=== PATIENT | male | born 1990 | race Hispanic/Latino ===

== ENCOUNTER 2021-04-10 08:24 | Emergency (ER) | payer SELFPAY ==
[2021-04-10 08:31] VITALS: BP 139/86
--- NOTE | 2021-04-10 08:44 | Emergency Department Report ---
ED General Adult HPI - General Chief complaint: Urogenital-Male Stated complaint: DISCOMFORT IN GROIN SWELLING Time Seen by Provider: 04/10/21 08:31 Source: patient Mode of arrival: Ambulatory Limitations: No Limitations - History of Present Illness Initial comments: 30-year-old male patient presents with complaints of right groin pain that occurred 4 days ago and possible swelling of his testicles that he noticed last night. He denies any current pain or trauma to his abdomen or testicles. Patient reports that he helped his cousin move heavy furniture on Wednesday and Wednesday. He denies any nausea/vomiting, fever/chills/sweats, dysuria/hematuria/urinary frequency, penile discharge, testicular pain, skin lesions/changes in color, or diarrhea/constipation/hematochezia/melena. Patient states when the pain occurred it was mild and only lasted a few hours. Pain seemed to improved after stretching per patient. He reports a history of anxiety and denies any other past medical problems. - Related Data Allergies Allergy/AdvReac Type Severity Reaction Status Date / Time No Known Allergies Allergy Unverified 04/10/21 08:26 ED Review of Systems ROS: Stated complaint: DISCOMFORT IN GROIN SWELLING Other details as noted in HPI Constitutional: denies: chills, diaphoresis, fever, malaise Gastrointestinal: as per HPI. denies: nausea, vomiting, diarrhea, constipation, hematemesis, melena, hematochezia Genitourinary: denies: urgency, dysuria, frequency, hematuria, discharge, testicular pain, testicular mass Musculoskeletal: denies: back pain Skin: denies: rash, lesions, change in color Hematological/Lymphatic: denies: swollen glands ED Past Medical Hx - Past Medical History Previous Medical History?: No - Surgical History Past Surgical History?: No - Social History Smoking Status: Never Smoker Substance Use Type: Alcohol ED Physical Exam - General Limitations: No Limitations General appearance: alert, in no apparent distress - Head Head exam: Present: atraumatic, normocephalic - Eye Eye exam: Present: normal appearance. Absent: scleral icterus - Respiratory Respiratory exam: Absent: respiratory distress - Cardiovascular Cardiovascular Exam: Present: regular rate - GI/Abdominal GI/Abdominal exam: Present: soft, normal bowel sounds. Absent: distended, tenderness, guarding, rebound, rigid - Rectal Rectal exam: Present: deferred - exam: Present: normal inspection. Absent: testicular tenderness, scrotal swelling External exam: Present: normal external exam. Absent: erythema, swelling - Neurological Exam Neurological exam: Present: alert, oriented X3, normal gait - Psychiatric Psychiatric exam: Present: normal affect, normal mood - Skin Skin exam: Present: warm, dry, intact, normal color. Absent: rash ED Course Vital Signs 04/10/21 08:27 Temperature 98.9 F Pulse Rate 69 Respiratory 18 Rate Blood Pressure 139/86 O2 Sat by Pulse 100 Oximetry ED Medical Decision Making - Medical Decision Making 30-year-old male patient presents with complaints of right groin pain that occurred 4 days ago and possible swelling of his testicles that he noticed last night. He denies any current pain or trauma to his abdomen or testicles. Patient reports that he helped his cousin move heavy furniture on Wednesday and Wednesday. He denies any nausea/vomiting, fever/chills/sweats, dysuria/hematuria/urinary frequency, penile discharge, skin lesions/changes in color, or diarrhea/constipation/hematochezia/melena. Patient states when the pain occurred it was mild and only lasted a few hours. Pain seemed to improved after stretching per patient. He reports a history of anxiety and denies any other past medical problems. No abdominal tenderness to palpation, testicular swelling/pain, or groin swelling/pain noted on exam. Patient's vitals are normal he is well-appearing. Suspect possible muscle at this time, however I do recommend patient follows up with the primary care doctor within 3 to 5 days for recheck. His vitals are normal, he is well-appearing, he is stable for discharge home. Discussed presumptive diagnosis, plan of care, and signs and symptoms that should prompt immediate return to the emergency department in detail with patient who verbalizes understanding. Critical care attestation.: If time is entered above; I have spent that time in minutes in the direct care of this critically ill patient, excluding procedure time. ED Disposition Clinical Impression: Right groin pain Disposition: 01 HOME / SELF CARE / HOMELESS Is pt being admited?: No Condition: Stable Instructions: Adductor Muscle Strain, Inguinal Hernia, Adult, [id number], Scrotal Swelling Referrals: [facility] [Provider Group] - 3-5 Days
== END 2021-04-10 09:01 | disposition home or self-care (01) ==
LOC: ED 08:24
DX: R10.30 Lower abdominal pain, unspecified (principal)
CPT/HCPCS: 99282

== ENCOUNTER 2021-07-22 11:39 | Emergency (ER) | payer SELFPAY ==
[2021-07-22 13:44] LABS: Bilirubin,Urine NEG (Negative); Blood,Urine NEG (Negative); Color,Urine Yellow (Yellow); Mucus,Urine FEW /HPF; Protein,Urine <15 mg/dL mg/dL (Negative); Urobilinogen,Urine < 2.0 mg/dL (<2.0)
--- NOTE | 2021-07-22 14:03 | Ultrasound Report ---
LIMITED RUQ ABDOMINAL ULTRASOUND INDICATION / CLINICAL INFORMATION: RUQ abd pain radiates to back. COMPARISON: No relevant prior imaging study available. FINDINGS: PANCREAS: Visualized portions of the pancreas are within normal limits. ABDOMINAL AORTA: No significant abnormality. IVC: No significant abnormality. LIVER: The liver measures 16.5 cm in length. The liver demonstrates increased echogenicity, compatib le with fatty infiltration. No focal hepatic lesion. PORTAL VEIN: Normal hepatopedal blood flow in the main portal vein. GALLBLADDER: There is gallbladder sludge. No evidence of gallbladder wall thickening. Negative sonogr aphic Lauren sign. BILE DUCTS: No significant abnormality. Common bile duct measures 3 mm. RIGHT KIDNEY: No significant abnormality visualized. FREE FLUID: None. ADDITIONAL FINDINGS: None. IMPRESSION: 1. Borderline enlarged, fatty liver. 2. Gallbladder sludge without evidence of cholecystitis. Signer Name: Enmanuel Cr MD Signed: 07/22/2021 1:58 PM Workstation Name: [id number]
[2021-07-22] MEDS ORDERED: FAMOTIDINE 20 MG TAB PO ONE (14:13)
[2021-07-22] MEDS ORDERED: traMADol 50 MG TAB PO ONE (14:13)
[2021-07-22] MEDS ORDERED: ONDANSETRON 4 MG ODT TAB PO ONE (14:13)
[2021-07-22 14:34] LABS: Basophils % (Auto) 0.6 % (0.0-1.8); Eosinophils % (Auto) 0.6 % (0.0-4.3); Hematocrit 47.8 % (35.5-45.6); Hemoglobin 15.6 gm/dl (11.8-15.2); Lymphocytes # (Auto) 1.9 K/mm3 (1.2-5.4); Lymphocytes % (Auto) 27.1 % (13.4-35.0); Mean Corpuscular HGB Conc 33 % (32-34); Mean Corpuscular Volume 87 fl (84-94); Monocytes # (Auto) 0.4 K/mm3 (0.0-0.8); Monocytes % (Auto) 5.5 % (0.0-7.3); Platelet Count 186 K/mm3 (140-440); Red Blood Count 5.48 M/mm3 (3.65-5.03); Red Cell Distribution Width 13.2 % (13.2-15.2)
--- NOTE | 2021-07-22 14:41 | Emergency Department Report ---
ED Abdominal Pain HPI - General Chief Complaint: Abdominal Pain Stated Complaint: RT ABD PAINS Time Seen by Provider: 07/22/21 12:52 Source: patient Mode of arrival: Ambulatory Limitations: No Limitations - History of Present Illness Initial Comments: Patient is a 30-year-old male presents emergency room complaints of right upper quadrant abdominal pain that radiates to his back that began 5 days ago. He is tolerating p.o. intake. He denies any fever, nausea, vomiting, diarrhea, hematochezia, melena, hematemesis, urinary symptoms, pain or swelling in the testicles. He states he is having normal bowel movements. He denies any past abdominal surgical history. He has an allergy to Tylenol 3 Severity scale (0 -10): 6 - Related Data Previous Rx's Medication Instructions Recorded Last Taken Type Dicyclomine [Bentyl] 10 mg PO QID PRN #30 capsule 07/22/21 Unknown Rx Famotidine [Pepcid] 40 mg PO QHS #30 tablet 07/22/21 Unknown Rx Allergies Allergy/AdvReac Type Severity Reaction Status Date / Time acetaminophen Allergy Itching Verified 07/22/21 14:41 [From Tylenol-Codeine #3] codeine Allergy Itching Verified 07/22/21 14:41 [From Tylenol-Codeine #3] ED Review of Systems ROS: Stated complaint: RT ABD PAINS Other details as noted in HPI Comment: All other systems reviewed and negative ED Past Medical Hx - Social History Smoking Status: Never Smoker Substance Use Type: Alcohol - Medications Home Medications: Home Medications Medication Instructions Recorded Confirmed Last Taken Type Dicyclomine [Bentyl] 10 mg PO QID PRN #30 capsule 07/22/21 Unknown Rx Famotidine [Pepcid] 40 mg PO QHS #30 tablet 07/22/21 Unknown Rx ED Physical Exam - General Limitations: No Limitations General appearance: alert, in no apparent distress - Head Head exam: Present: atraumatic, normocephalic - Eye Eye exam: Present: normal appearance - ENT ENT exam: Present: mucous membranes moist - Respiratory Respiratory exam: Present: normal lung sounds bilaterally. Absent: respiratory distress, wheezes, rales, rhonchi, stridor, chest wall tenderness, accessory muscle use, decreased breath sounds, prolonged expiratory - Cardiovascular Cardiovascular Exam: Present: regular rate, normal rhythm, normal heart sounds. Absent: systolic murmur, diastolic murmur, rubs, gallop - GI/Abdominal GI/Abdominal exam: Present: soft, tenderness (mild RUQ), normal bowel sounds, other (negative murphys sign, negative mcburneys point ttp). Absent: distended, guarding, rebound, rigid - Neurological Exam Neurological exam: Present: alert, oriented X3 - Psychiatric Psychiatric exam: Present: normal affect, normal mood - Skin Skin exam: Present: warm, dry, intact ED Course Vital Signs 07/22/21 07/22/21 07/22/21 13:02 13:12 13:15 Temperature 98.5 F 97.9 F Pulse Rate 65 73 Respiratory 16 18 17 Rate Blood Pressure 125/71 130/72 [Left] O2 Sat by Pulse 97 98 99 Oximetry 07/22/21 15:48 Temperature Pulse Rate 80 Respiratory 18 Rate Blood Pressure 138/89 [Left] O2 Sat by Pulse 97 Oximetry ED Medical Decision Making - Lab Data Result diagrams: 07/22/21 13:48 07/22/21 13:48 - Radiology Data Radiology results: report reviewed Ordering Physician: PATRICK WALTER Date of Service: 07/22/21 Procedure(s): US abdomen limited Accession Number(s): [id number] cc: PATRICK WALTER LIMITED RUQ ABDOMINAL ULTRASOUND INDICATION / CLINICAL INFORMATION: RUQ abd pain radiates to back. COMPARISON: No relevant prior imaging study available. FINDINGS: PANCREAS: Visualized portions of the pancreas are within normal limits. ABDOMINAL AORTA: No significant abnormality. IVC: No significant abnormality. LIVER: The liver measures 16.5 cm in length. The liver demonstrates increased echogenicity, compatible with fatty infiltration. No focal hepatic lesion. PORTAL VEIN: Normal hepatopedal blood flow in the main portal vein. GALLBLADDER: There is gallbladder sludge. No evidence of gallbladder wall thickening. Negative sonographic Lauren sign. BILE DUCTS: No significant abnormality. Common bile duct measures 3 mm. RIGHT KIDNEY: No significant abnormality visualized. FREE FLUID: None. ADDITIONAL FINDINGS: None. IMPRESSION: 1. Borderline enlarged, fatty liver. 2. Gallbladder sludge without evidence of cholecystitis. Signer Name: Celso Cr MD Signed: 07/22/2021 1:58 PM Workstation Name: [id number] Transcribed By: VERENA Dictated By: CELSO CR MD Electronically Authenticated By: CELSO CR MD Signed Date/Time: 07/22/211357 DD/ 56 TD/TT: - Medical Decision Making Patient is a 30-year-old male presents emergency room complaints of right upper quadrant abdominal pain that radiates to his back that began 5 days ago. He is tolerating p.o. intake. He denies any fever, nausea, vomiting, diarrhea, hematochezia, melena, hematemesis, urinary symptoms, pain or swelling in the testicles. He states he is having normal bowel movements. He denies any past abdominal surgical history. He has an allergy to Tylenol 3. Vitals are normal. On exam patient has mild right upper quadrant tenderness, negative Lauren sign, negative McBurney's point tenderness, no rigidity, no peritoneal signs. Right upper quadrant ultrasound 1. Borderline enlarged, fatty liver. 2. Gallbladder sludge without evidence of cholecystitis. Labs are stable. UA is within normal limits. Patient given p.o. medications while in the emergency department was able to tolerate p.o. intake without difficulty and symptoms imp roved. Discussed all findings with patient and discussed return precautions. Advised patient Take medication as prescribed. Increase your fluid intake. Follow-up with a primary care doctor. Follow-up with a GI doctor. Follow-up with a general surgeon. Return to emergency room for any new or worsening symptoms. Critical care attestation.: If time is entered above; I have spent that time in minutes in the direct care of this critically ill patient, excluding procedure time. ED Disposition Clinical Impression: Gallbladder sludge Abdominal pain Qualifiers: Abdominal location: right upper quadrant Qualified Code(s): R10.11 - Right upper quadrant pain Disposition: 01 HOME / SELF CARE / HOMELESS Is pt being admited?: No Does the pt Need Aspirin: No Condition: Stable Additional Instructions: Take medication as prescribed. Increase your fluid intake. Follow-up with a primary care doctor. Follow-up with a GI doctor. Follow-up with a general surgeon. Return to emergency room for any new or worsening symptoms. Prescriptions: Famotidine [Pepcid] 40 mg PO QHS #30 tablet Dicyclomine [Bentyl] 10 mg PO QID PRN #30 capsule PRN Reason: abd pain/cramping Referrals: PRIMARY CARE, [Primary Care Provider] - 3-5 Days [facility] [Provider Group] - 3-5 Days SHADY LOPEZ DO [Staff Physician] - 3-5 Days Time of Disposition: 15:36 Print Language: PALAUAN
[2021-07-22 14:56] LABS: Alanine Aminotransferase 65 units/L (7-56); Albumin 4.7 g/dL (3.9-5); BUN/Creatinine Ratio 15; Blood Urea Nitrogen 17 mg/dL (9-20); Calcium 9.7 mg/dL (8.4-10.2); Hemolysis Index 7
[2021-07-22 15:50] VITALS: BP 138/89
== END 2021-07-22 15:54 | disposition home or self-care (01) ==
LOC: ED 11:39
DX: K82.8 Other specified diseases of gallbladder (principal)
CPT/HCPCS: 36415; 76705; 80053; 81001; 83690; 85025; 99284; J3490; Q0162